=== PATIENT | female | born 1990 | race Caucasian/White ===

== ENCOUNTER 2024-05-13 09:07 | Outpatient (CLI) | payer BC, SELFPAY ==
--- NOTE | 2024-05-13 09:15 | CRLHL7_ITS ---
For Patients: As a result of the Cures Act, medical imaging exams and procedure reports are released immediately into your electronic medical record. You may view this report before your referring provider. If you have questions, please contact your health care provider. INDICATION: First trimester scan, establish dates. COMPARISON: None. TECHNIQUE: Real-time castro-scale imaging of the pelvis was performed. FINDINGS: Sonographic imaging demonstrates a single living intrauterine gestation. The embryo demonstrates a regular cardiac rate measuring 178 beats per minute. The embryo`s crown-rump length measurement of 2.1 cm corresponds to a gestational age of 8 weeks 5 days with a sonographic due date of 12/18/2024. There is a normal-appearing yolk sac. There are no gross abnormalities noted within the embryo at this early state of development. The gestational sac has a normal appearance. There is a 2.0 x 1.0 x 3.2 cm perigestational hemorrhage. The amount of fluid within the sac appears appropriate for gestational age. The cervix is closed. The myometrium appears normal. Normal right ovary. Corpus luteal cyst left ovary measures 2.6 x 1.7 x 2.2 cm. There are no suspicious fluid collections noted in the cul-de-sac. IMPRESSION: Single living intrauterine with sonographic gestational age is 8 weeks 5 days and sonographic due date of 12/18/2024. Subchorionic hemorrhage measures 2.0 x 1.0 x 3.2 cm. Dictated by Lenny Polanco MD @ 05/13/2024 10:20:40 AM (Electronically Signed)
== END 2024-05-13 09:08 | disposition home or self-care (01) ==
LOC: US 09:09
PROVIDERS: Visit Provider Registered Nurse
DX: Z34.91 Encounter for supervision of normal pregnancy, unspecified, first trimester (principal); O20.9 Hemorrhage in early pregnancy, unspecified; Z3A.08 8 weeks gestation of pregnancy
CPT/HCPCS: 76817; 82565; 82570; 84156; 84450; 84460; 84520; 86703; 86706; 86803; 86850; 86900; 86901; 87086; 87340; 87491; 87591; 87624; 88142

== ENCOUNTER 2024-05-13 10:10 | Outpatient (CLI) | payer BC, SELFPAY ==
[2024-05-13 14:08] LABS: Chlamydia DNA Amplified* NOT DETECTED (No Detected); GC DNA Amplified* NOT DETECTED (No Detected)
[2024-05-16 18:35] LABS: HPV Source Cervix; HPV, High Risk by TMA Not Detected
== END 2024-05-13 10:11 | disposition home or self-care (01) ==
PROVIDERS: Visit Provider Advanced Practice Midwife
DX: Z34.91 Encounter for supervision of normal pregnancy, unspecified, first trimester (principal); Z3A.08 8 weeks gestation of pregnancy; Z87.59 Personal history of other complications of pregnancy, childbirth and the puerperium; Z12.4 Encounter for screening for malignant neoplasm of cervix
CPT/HCPCS: 82565; 82570; 84156; 84450; 84460; 84520; 86592; 86703; 86704; 86706; 86762; 86787; 86803; 86850; 86900; 86901; 87086; 87340; 87491; 87591; 87624; 87625; 88141; 88142

== ENCOUNTER 2024-05-18 07:34 | Outpatient (CLI) | payer BC, SELFPAY | END 2024-05-18 07:35 | disposition home or self-care (01) | LOC: NFLDREF 05-19 15:43 | PROVIDERS: Visit Provider Advanced Practice Midwife | DX: Z87.59 Personal history of other complications of pregnancy, childbirth and the puerperium (principal) | CPT/HCPCS: 82570; 84156 ==

== ENCOUNTER 2024-08-05 13:26 | Outpatient (CLI) | payer BC, SELFPAY | END 2024-08-05 13:27 | disposition home or self-care (01) | LOC: US 13:27 | PROVIDERS: Visit Provider Obstetrics & Gynecology | DX: O99.212 Obesity complicating pregnancy, second trimester (principal); Z3A.20 20 weeks gestation of pregnancy | CPT/HCPCS: 76811 ==

== ENCOUNTER 2024-09-29 13:35 | Outpatient (CLI) | payer BC, SELFPAY | END 2024-09-29 13:36 | disposition home or self-care (01) | LOC: NFLDREF 10-02 03:12 | PROVIDERS: Visit Provider Obstetrics & Gynecology | DX: Z34.93 Encounter for supervision of normal pregnancy, unspecified, third trimester (principal); Z3A.28 28 weeks gestation of pregnancy | CPT/HCPCS: 86592 ==

== ENCOUNTER 2024-10-22 09:12 | Outpatient (CLI) | payer BC, SELFPAY ==
--- NOTE | 2024-10-22 09:15 | CRLHL7_ITS ---
For Patients: As a result of the Century Cures Act, medical imaging exams and procedure reports are released immediately into your electronic medical record. You may view this report before your referring provider. If you have questions, please contact your health care provider. INDICATION: Growth check, obesity TECHNIQUE: Ultrasound OB pelvis transabdominal. Real-time castro-scale and color Doppler imaging of the fetus was performed. COMPARISON: Ob ultrasound 08/05/2024 FINDINGS: Single living intrauterine gestation. heart rate: 142 beats per minute. Presentation: Breech. Placenta: Posterior. Amniotic fluid deepest pocket: 5.3 cm. The following biometric measurements were obtained: Biparietal diameter: 7.8 cm, 31 week 2 days, 20%. Head circumference: 29.4 cm, 32 weeks 3 days, 25%. Abdominal circumference: 28 cm, 32 week 0 day, 49%. Femur length: 5.7 cm, 29 week 5 day, <3%. This measured 3.3 cm on prior ultrasound in the 27% Ultrasound age: 31 week 3 day. CHRISSIE by US: 12/21/2024. EFW: 1740 Grams, 19.5 %. IMPRESSION.: Viable intrauterine measuring 31 week 3 day by ultrasound with CHRISSIE of 12/21/2024. weight of 1740 gram in the 19.5%, with asymmetric growth reduction of the femur measuring < 3%, previously in the 27% Dictated by Sweetie Morales MD @ 10/23/2024 10:01:47 AM (Electronically Signed)
== END 2024-10-22 09:13 | disposition home or self-care (01) ==
LOC: US 09:13
PROVIDERS: Visit Provider Obstetrics & Gynecology
DX: O99.213 Obesity complicating pregnancy, third trimester (principal); Z3A.31 31 weeks gestation of pregnancy
CPT/HCPCS: 76816

== ENCOUNTER 2024-11-20 11:09 | Outpatient (CLI) | payer BC, SELFPAY ==
[2024-11-21 12:26] LABS: Strep B DNA Probe Negative (Negative)
[2024-11-21 12:39] LABS: Strep B Susceptibility Needed? No
== END 2024-11-20 11:10 | disposition home or self-care (01) ==
LOC: NFLDREF 11:09
PROVIDERS: Visit Provider Obstetrics & Gynecology
DX: Z34.83 Encounter for supervision of other normal pregnancy, third trimester (principal)
CPT/HCPCS: 87081; 87653

== ENCOUNTER 2024-11-26 08:19 | Outpatient (CLI) | payer BC, SELFPAY ==
--- NOTE | 2024-11-26 08:15 | CRLHL7_ITS ---
For Patients: As a result of the Cures Act, medical imaging exams and procedure reports are released immediately into your electronic medical record. You may view this report before your referring provider. If you have questions, please contact your health care provider. OB ULTRASOUND BIOPHYSICAL PROFILE, 11/26/2024 CLINICAL HISTORY: Obesity. COMPARISON: 10/22/2024, 08/05/2024, 05/13/2024. TECHNIQUE: Real time castro scale imaging of the fetus was performed. FINDINGS: CHRISSIE by LMP/US: 12/17/2024. GA: 37 weeks 0 days. GESTATION: Single. CERVIX: Not visualized. AMNIOTIC FLUID: 5.3 cm SDP. BIOPHYSICAL PROFILE: Gross Body Movements: 2 Tone: 2 Respiratory Activity: 2 Amniotic Fluid SDP: 2 Total Score: 8/8 PLACENTA: Technique: TA. Placenta Position: Posterior. DOPPLERS: Heart Rate: 151 bpm. IMPRESSION: Normal biophysical profile score of 8/8. Lenny Polanco M.D. Diagnostic Radiologist [email or web address] Transcribed: 10:06 am DW/Dictated by: Lenny Polanco MD @ 11/26/2024 9:55:00 AM (Electronically Signed)
== END 2024-11-26 08:20 | disposition home or self-care (01) ==
LOC: US 08:19
PROVIDERS: Visit Provider Obstetrics & Gynecology
DX: O99.213 Obesity complicating pregnancy, third trimester (principal); Z3A.37 37 weeks gestation of pregnancy
CPT/HCPCS: 76819

== ENCOUNTER 2024-11-28 09:05 | Outpatient (CLI) | payer BC, SELFPAY ==
[2024-11-28] VITALS (28 sets, daily range): BP systolic 115–140; BP diastolic 58–84; PULSE 60–81; RESP 16; TEMP 36.5; O2SAT 97
--- NOTE | 2024-11-28 16:34 | PC.OBNST ---
NST Note NST Note Start: 11/28/24 09:09 Freq: ONCE Status: Discharge Protocol: Document 11/28/24 16:30 BAW (Rec: 11/28/24 16:34 BAW No Response) NST Note 5 Para (# of births) 2 EDC 12/17/24 Gestational Age In Weeks & Days 37 Weeks & 2 Days Patient Presented with Complaint(s) of Other Other Complaints pt. reported elevated BP's at home, visual changes and a headache. Reactive Yes Appropriate for Gestational Age Yes CASPER Heredia RNC Date 11/28/24 Reactive Yes Appropriate for Gestational Age Yes CASPER Mosley RN Date 11/28/24 OB NST charge Yes Complete NST Note via Write Note Yes The provider's electronic signature indicates the NST is reactive/appropriate for gestational age. *Note to provider: If an addendum is required, open the patient's chart and click on the note under the Nurse/Allied Health tab.
== END 2024-11-28 15:55 | disposition home or self-care (01) ==
LOC: OB OUT 09:06 → OB 09:09
PROVIDERS: Visit Provider Obstetrics & Gynecology
DX: O26.893 Other specified pregnancy related conditions, third trimester (principal); R03.0 Elevated blood-pressure reading, without diagnosis of hypertension; R51.9 Headache, unspecified; H53.9 Unspecified visual disturbance; Z3A.37 37 weeks gestation of pregnancy
CPT/HCPCS: 59025; G0463

== ENCOUNTER 2024-12-03 08:23 | Outpatient (CLI) | payer BC, SELFPAY ==
--- NOTE | 2024-12-03 08:15 | CRLHL7_ITS ---
For Patients: As a result of the Cures Act, medical imaging exams and procedure reports are released immediately into your electronic medical record. You may view this report before your referring provider. If you have questions, please contact your health care provider. OBSTETRICAL ULTRASOUND ??? BIOPHYSICAL PROFILE, 12/03/2024 INDICATION: Obesity. CLINICAL HISTORY: LMP: 03/12/2024 CHRISSIE by LMP: 12/17/2024 Gestational Age: 38 weeks 0 days PRIOR ULTRASOUND: 11/26/2024, 10/22/2024, 08/05/2024. TECHNIQUE: Real-time castro-scale transabdominal imaging of the fetus was performed. FINDINGS: Fetus: Single Cervix: Not visualized positioning: Vertex Amniotic Fluid: 5.1 cm SDP BIOPHYSICAL PROFILE: Gross body movements: 2 tone: 2 Respiratory activity: 2 Amniotic fluid SDP: 2 Total score: 8 Placenta technique: Transabdominal Placenta position: Posterior, right wall heart rate: 149 bpm IMPRESSION: Normal biophysical profile score of 8/8. LENNY MADDEN M.D. Diagnostic Radiologist [email or web address] Transcribed: 10:[address]/Dictated by: Lenny Madden MD @ 12/03/2024 9:24:00 AM (Electronically Signed)
== END 2024-12-03 08:24 | disposition home or self-care (01) ==
LOC: US 08:23
PROVIDERS: Visit Provider Obstetrics & Gynecology
DX: O99.213 Obesity complicating pregnancy, third trimester (principal); E66.812 Obesity, class 2; Z3A.38 38 weeks gestation of pregnancy
CPT/HCPCS: 76819

== ENCOUNTER 2024-12-03 10:06 | Inpatient (IN) | payer BC, SELFPAY ==
[2024-12-03] VITALS (20 sets, daily range): BP systolic 121–149; BP diastolic 68–87; PULSE 61–77; RESP 16; TEMP 36.6–36.8; O2SAT 98–99; BMI 40.1
[2024-12-03 10:40] LABS: Hematocrit 36.5 % (33.0-51.0); Hemoglobin* 12.1 gm/dL (12.0-16.0); Mean Corpuscular HGB Conc 33 gm/dL (32-36); Mean Corpuscular Hemoglobin 29 pg (26-34); Mean Corpuscular Volume 88 fL (80-100); Platelet Count* 225 K/uL (140-440); Red Blood Count 4.13 m/uL (4.00-5.20); Slide Review Reflex No; White Blood Count* 9.33 K/uL (4.50-11.00)
[2024-12-03 10:54] LABS: Alanine Aminotransferase* 19 U/L (4-35); Aspartate Amino Transferase* 26 U/L (12-35); Blood Urea Nitrogen* 6 mg/dL (5-24); Creatinine* 0.6 mg/dL (0.5-1.5); Estimated Glomerular Filt Rate 122 ml/min
[2024-12-03] MEDS: LACTATED RINGERS 1000 ML 1,000 ML 125 ML IV ×2 (11:57→19:04)
[2024-12-03] MEDS: OXYTOCIN 30 unit/500 ML in NS 30 UNIT/500 ML BAG IVPB (11:58)
[2024-12-03 12:46] LABS: Total Protein Urine 11 mg/dL
[2024-12-03 12:47] LABS: Creatinine Urine 32.3 mg/dL; Protein Creatinine Ratio Urine 0.34 (0-0.19)
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
--- NOTE | 2024-12-03 21:14 | W.PM.OBVAGDE ---
OB Procedure Vag Delivery Mother Details Mother Details: The patient is a 34 year-old, 5, Para 2, admitted on 12/03/24 at 38 0/7 Days gestation. Admitted for IOL due to diagnosis of preeclampsia w/o severe features. : 5 Para: 3 Weeks Gestation: 38 Admission Date: 12/03/24 Additional Details Amniotic Membrane Status: AROM Amniotic Membrane Rupture Date: 12/03/24 Amniotic Membrane Rupture Time: 16:01 Amniotic Membrane Fluid Description: Clear Analgesia/Anesthesia Type: None Waterbirth: No Pitcoin: Yes Intrapartal Events: Labor Induction Induction Method: per pitocin protocol and AROM Labor Onset: 17:00 Complete: 20:50 Pushin:50 Heart: heart tones during second stage were category 1. Delivery Details Delivery Date: 12/03/24 Delivery Time: 21:00 Route of delivery: Gender: Female Infant Viability: Alive; Heart Rate Present Position at Delivery: OA Delivery Details: Delivered via spontaneous vaginal delivery. was placed on maternal abdomen.? Cord was clamped and cut after a 30-60 second delay. Nose and mouth were bulb suctioned.? weight pending. 1 Minute Interval Total Score: 9 5 Minute Interval Total Score: 9 Additional Details Shoulder Dystocia: No Placenta Delivery Time: 21:07 Placental Delivery Description: Spontaneous Procedure Done: Global Blood Loss: 100 Laceration: Vaginal - 1st Degree (Not bleeding, not repaired) Episiotomy Description: None Blood Loss Measurement Type: QBL Bakri Used: No Sponge/Need Count Correct: Yes Cord Vessel Description: 3 Vessels Event Summary Status: Mother and infant were stable after delivery. Disposition: floor
[2024-12-03] MEDS: NIFEdipine ER 30 MG TAB PO (23:44)
[2024-12-04 04:06] VITALS: BP 113/75; PULSE 63; RESP 16; TEMP 36.8; O2SAT 98
[2024-12-04 06:48] LABS: Hemoglobin* 11.9 gm/dL (12.0-16.0)
--- NOTE | 2024-12-04 07:48 | PM.OBPNVD1 ---
OB - PN:Subj Subjective Date Seen: 12/04/24 Narrative: Lizabeth is a 34 y.o. G 5 P 3 who was admitted to L & D for induction of labor for pre-e without SF. ?She had a NVD that was uncomplicated. The patient feels well. ?The pain is well controlled with current medications. ?She has no new complaints. ?She is breast feeding and reports things are going well. the patient has done well.? Her Blood pressure was mild range after delivery and oral nifedipine was started. Vitals have been stable since.? She has remained afebrile.? Has a good appetite, is tolerating a general diet. ?She is voiding without difficulty.? She is passing gas and has had a bowel movement.? She is ambulating and denies any dizziness.? Has small amount of rubra lochia. Problems: Elevated BP with Pre-eclampsia w/out SF, oral nifedipine 30 mg started OB - PN: Obj Exam Physical Exam: Vital signs: Temp Pulse Resp BP Pulse Ox O2 Del Method 98.2 F 63 16 113/75 98 Room Air 12/04/24 04:06 12/04/24 04:06 12/04/24 04:06 12/04/24 04:06 12/04/24 04:06 12/04/24 04:06 Narrative: GENERAL APPEARANCE:? normal affect, alert, no distress MOOD:? appropriate CHEST:? clear to auscultation HEART:? regular rate and rhythm ABDOMEN:? soft, non-tender the uterine fundus is At Umbilicus, Midline and is appropriate for the stage of recovery. PERINEUM:? mild edema of the perineum. EXTREMITIES:? normal and no edema OB - PN: Obj Data Labs Labs: Laboratory Results - last 24 hr 12/03/24 12/03/24 12/04/24 10:30 12:20 06:40 WBC 9.33 RBC 4.13 Hgb 12.1 11.9 L Hct 36.5 MCV 88 MCH 29 MCHC 33 Plt Count 225 BUN 6 Creatinine 0.6 Estimated GFR 122 AST 26 ALT 19 Urine Creatinine 32.3 Protein/Creatinin Ratio 0.34 H Urine Total Protein 11 OB - PN: A/P Delivery Assessment and Plan (1) care and examination immediately after delivery: Status: Acute (2) Preeclampsia: Status: Acute (3) Lactating mother: Status: Acute Plan day: 1 Comments: Routine care , may see if needed? Hgb 11.9.? Pre-e w/out SF diagnosed by elevated BP greater than 4 hours apart? Labs WNL Oral Nifedipine 30 mg daily Continue to Monitor BP per protocol
[2024-12-04 08:07] VITALS: BP 116/75; PULSE 63; RESP 17; TEMP 36.4; O2SAT 98
[2024-12-04 11:55] VITALS: BP 129/86; PULSE 63; RESP 16; TEMP 36.4
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
[2024-12-04 16:01] VITALS: BP 112/73; PULSE 63; RESP 17; TEMP 36.5
[2024-12-04 18:36] LABS: Rapid Plasma Reagin (RPR) Reactive (Non Reactive)
[2024-12-04 20:04] VITALS: BP 130/86; PULSE 71; RESP 18; TEMP 36.7; O2SAT 98
[2024-12-04] MEDS: NIFEdipine ER 30 MG TAB PO (20:55)
[2024-12-05 00:15] VITALS: BP 114/66; PULSE 84; RESP 20; TEMP 37.1; O2SAT 97
[2024-12-05 04:32] VITALS: BP 120/71; PULSE 69; RESP 16; TEMP 36.4; O2SAT 99
[2024-12-05] MEDS: DOCUSATE SODIUM 100 MG CAPSULE PO (08:20)
[2024-12-05] MEDS: MEASLES,MUMPS,RUBELLA VACC/PF 1 DOSE INJ 1 EACH SUBCUT (08:20)
[2024-12-05 08:31] VITALS: BP 146/85; PULSE 66; RESP 16; TEMP 36.8; O2SAT 100
[2024-12-05 09:18] LABS: Hematocrit 37.9 % (33.0-51.0); Hemoglobin* 12.3 gm/dL (12.0-16.0); Mean Corpuscular HGB Conc 33 gm/dL (32-36); Mean Corpuscular Hemoglobin 29 pg (26-34); Mean Corpuscular Volume 91 fL (80-100); Platelet Count* 227 K/uL (140-440); Red Blood Count 4.18 m/uL (4.00-5.20); White Blood Count* 11.48 K/uL (4.50-11.00)
[2024-12-05 09:27] LABS: Slide Review Reflex No
[2024-12-05 09:33] LABS: Alanine Aminotransferase* 22 U/L (4-35); Aspartate Amino Transferase* 30 U/L (12-35); Blood Urea Nitrogen* 9 mg/dL (5-24); Creatinine* 0.6 mg/dL (0.5-1.5); Est. Creatinine Clearance* 111.35; Estimated Glomerular Filt Rate 122 ml/min
--- NOTE | 2024-12-05 09:58 | P.DS_ITS ---
DS: Providers Provider Time Seen by Provider: 09:59 Date Seen: 12/05/24 Date of admission: 12/03/24 10:06 Primary care physician: Not a Local Provider Admitting Clinician: Zaida Rowell MD Consults: 12/03/24 14:10 Consult to Supervisor Tumblers [CONS] Routine Comment: reflex order from social history questionnaire Reason for Consult:: Social Service Consult Attending Physician on discharge: Francoise Acosta MD Exam Narrative: Exam Narrative: General: Alert and oriented, no acute distress Psych: Appropriate mood and affect Heart: Regular rate and rhythm, no rubs murmurs or gallops Lungs: Clear to posterior auscultation throughout. No wheezes, rales or crackles. Abdomen: Soft, nondistended. Nontender to palpation. Fundus at umbilicus. Extremities: Trace lower extremity edema. Calves are without pain/swelling/erythema. UOP: Adequate at 550cc/8 hours Const: Vital Signs, click to edit/add: Vital Signs - 24 hr 12/04/24 11:55 12/04/24 16:01 12/04/24 20:04 Temperature 97.6 F 97.7 F 98.0 F Pulse Rate [Blood Pressure Cuff] 63 63 71 Respiratory Rate 16 17 18 Blood Pressure [Le ft Arm] 129/86 112/73 130/86 Pulse Oximetry 98 Oxygen Delivery Me thod Room Air Room Air Room Air 12/05/24 00:15 12/05/24 04:32 12/05/24 08:31 Temperature 98.8 F 97.5 F L 98.2 F Pulse Rate [Blood Pressure Cuff] 84 69 66 Respiratory Rate 20 16 16 Blood Pressure [Le ft Arm] 114/66 120/71 146/85 H Pulse Oximetry 97 99 100 Oxygen Delivery Me thod Room Air Room Air Room Air OB - DS: Summary Hospital Course Hospital Course: The patient is a 34 year old G 5 P 3 at 38 weeks gestation that was admitted to the Center on 12/03/24 for induction of labor in the setting of preeclampsia without severe features. She had an uncomplicated vaginal delivery. She delivered a viable female infant. She is breast feeding. the patient has done well. Lizabeth was started on nifedipine extended release 30 mg daily for blood pressure control. She is feeling well today with no headaches, vision changes or right upper quadrant pain. Initial blood pressure this morning was elevated, where repeat HELLP labs were obtained and found to be within normal limits. Serial blood pressures to followed, which were within normal limits thus her antihypertensive regimen was not revised. Plan to discharge on nifedipine extended release 30 mg daily. Recommend twice daily blood pressure checks and log. She will be due to follow-up in clinic early next week for a MD blood pressure check. She is meeting all appropriate milestones. Pain is well controlled, tolerating a diet without nausea or vomiting. Voiding spontaneously, passing flatus. Lochia is described as light. Denies chest pain, dyspnea, fever/chills, dizziness or lightheadedness. Infant Gender: Female Time Spent with Patient Time attestation: Total time spent providing and/or coordinating discharge services: Time spent: Less than 30 minutes Discharge Plan Discharge Disposition: Home, Self-Care Date of Admission: 12/03/24 10:06 Primary Care Provider: Provider,Not a Local Condition: Stable Anticipated Discharge Date/Time: 12/05/24 13:00 Discharge Medications: New nifedipine 30 mg Tablet Extended Release 30 mg PO HS Qty: 30 1RF Continued DHA 200 mg capsule 200 mg PO DAILY aspirin [Adult Low Dose Aspirin] 81 mg tablet,delayed release (DR/EC) 81 mg PO QDAY Discharge Orders: Discharge Order (Routine); Ordered 12/05/24 Ordered By: Iris Acosta Additional Instructions: Discharge instructions were reviewed with the patient including signs and symptoms of infection and home going medications Nothing vaginally for 6 weeks: no tampons or intercourse Do not drive while taking narcotic pain medication(s) Off Work or School for 8 weeks Symptoms to report to doctor: * Bleeding that saturates more than one pad per hour * Passing clots larger than the size of a golf ball * Pain not relieved by prescribed medication * Fever above 100.4 degrees Fahrenheit * A foul vaginal odor * Difficulty in emotions, mood, and functions * Thoughts of hurting yourself and/or * Painful, reddened area in your breast * Any drainage, redness, or tenderness in your IV/epidural site * Severe headache that doesn't improve after taking medications * Changes in vision, including temporary loss of vision, blurred vision, and/or light sensitivity * Upper abdominal pain (usually under ribs on the right side) * Decrease in urination or painful, frequent urinating * Chest pain * Shortness of breath * Tenderness or pain with redness and/swelling in the calf(s) of your leg [facility] for a BP check 12/07-12/09. Call with BP greater than or equal to 160/110 Optional 2-week visit: discuss infant feeding concerns, review control options and screen for anxiety/depression. 6-week visit for an annual exam. consultation services are available to all mothers and babies for the first year after delivery.? To make an appointment, please call [phone]. Follow Up Appointments: Provider,Not a Local [Primary Care Provider] - Forms: [employer] Info Instructions
[2024-12-05 10:06] VITALS: BP 136/83; PULSE 66
[2024-12-05 11:00] VITALS: BP 122/80
[2024-12-05] MEDS: IBUPROFEN 600 MG TABLET PO (11:32)
[2024-12-05 21:22] LABS: Treponema pallidum AbTP-PA Non Reactive (Non Reactive)
== END 2024-12-05 12:24 | disposition home or self-care (01) | DRG 560 ==
PROVIDERS: Obstetrics & Gynecology; Admitting Provider Obstetrics & Gynecology; Visit Provider Obstetrics & Gynecology
DX: O14.04 Mild to moderate pre-eclampsia, complicating childbirth (principal); Z3A.38 38 weeks gestation of pregnancy; Z37.0 Single live birth; O99.214 Obesity complicating childbirth; E66.812 Obesity, class 2; Z87.59 Personal history of other complications of pregnancy, childbirth and the puerperium; Z78.9 Other specified health status; O70.0 First degree perineal laceration during delivery
CPT/HCPCS: 36415; 82565; 82570; 84156; 84450; 84460; 84520; 85018; 85027; 86592; 86593; 86780; 88307; A9270; J7120

== ENCOUNTER 2024-12-24 09:01 | Outpatient (CLI) | payer BC, SELFPAY ==
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
== END 2024-12-24 09:02 | disposition home or self-care (01) ==
LOC: OB LAC 09:02
PROVIDERS: Visit Provider Obstetrics & Gynecology
DX: Z39.1 Encounter for care and examination of lactating mother (principal)
CPT/HCPCS: G0463

== ENCOUNTER 2025-01-18 12:13 | Outpatient (CLI) | payer BC, SELFPAY | END 2025-01-18 12:14 | disposition home or self-care (01) | LOC: NFLDREF 12:18 | PROVIDERS: PCP Registered Nurse; Visit Provider Registered Nurse | DX: O14.95 Unspecified pre-eclampsia, complicating the puerperium (principal); R82.90 Unspecified abnormal findings in urine | CPT/HCPCS: 80048; 87086 ==

== ENCOUNTER 2025-02-24 08:07 | Outpatient (CLI) | payer BC, SELFPAY ==
--- NOTE | 2025-02-24 08:15 | CRLHL7_ITS ---
For Patients: As a result of the Century Cures Act, medical imaging exams and procedure reports are released immediately into your electronic medical record. You may view this report before your referring provider. If you have questions, please contact your health care provider. EXAM: MRI OF THE RIGHT KNEE, WITHOUT CONTRAST CLINICAL INDICATION: Knee pain. PRIOR SURGERY: None reported. COMPARISON PLAIN FILMS: None available at time of interpretation. COMPARISON CROSS-SECTIONAL IMAGING STUDIES: None available at time of interpretation. TECHNICAL: Axial, sagittal and coronal T1, PD, PD FS and T2 FS images. FINDINGS: OSSEOUS STRUCTURES: No fracture, marrow edema or marrow replacement process. JOINT SPACE AND CAPSULE: Effusion: No significant joint effusion or synovitis. Joint Bodies: None seen. CRUCIATE LIGAMENTS: Anterior Cruciate Ligament: Full-thickness chronic tear with indistinct scarred down remnant over the tibial spines. Posterior Cruciate Ligament: Mildly redundant from slight anterior translocation of the tibia. EXTENSOR MECHANISM: Distal Quadriceps Tendon: Normal. Patellar Tendon: Normal. Medial Patellar Retinaculum and Medial Patellofemoral Ligament: Normal. Lateral Patellar Retinaculum: Normal. Normal patellar alignment. No patella albin. Normal trochlear depth. Normal lateral trochlear inclination. MEDIAL COLLATERAL LIGAMENT AND POSTEROMEDIAL CORNER COMPLEX: Medial Collateral Ligament: Normal. Medial Head of the Gastrocnemius and Semimembranosus Tendons: Normal. LATERAL COLLATERAL LIGAMENT COMPLEX AND POSTEROLATERAL CORNER COMPLEX: Fibular Collateral Ligament: Normal. Distal Biceps Femoris Tendon Complex: Normal. Iliotibial Band: Normal. Popliteus Tendon: Normal. Posterolateral Corner Capsule: Normal. MEDIAL COMPARTMENT: Medial Meniscus: Normal size and morphology without tear. Articular Cartilage: Articular surfaces appear smooth without focal articular cartilage defect or subchondral marrow changes. LATERAL COMPARTMENT: Lateral Meniscus: Somewhat complex longitudinal tear at the periphery of the posterior horn sparing the root. Tear extends into the peripheral midbody. Articular Cartilage: Articular surfaces appear smooth without focal articular cartilage defect or subchondral marrow changes. PATELLOFEMORAL COMPARTMENT: Articular Cartilage: Articular surfaces appear smooth without focal articular cartilage defect or subchondral marrow changes. PERIARTICULAR SOFT TISSUES: Popliteal Cyst: No significant popliteal cyst. Periarticular Cysts or Ganglia: None. Bursae: No prepatellar, superficial infrapatellar, deep infrapatellar, pes anserinus or semimembranosus/MCL bursitis. Musculature: No muscle atrophy or muscle edema. Subcutaneous and Soft Tissues: No subcutaneous or soft tissue mass, edema or fluid collection. Neurovascular Structures: Normal. IMPRESSION: 1. Likely chronic full-thickness ACL tear. 2. Peripheral longitudinal tear body and posterior horn lateral meniscus. Dictated by Herman Evans MD @ 02/25/2025 9:37:13 AM (Electronically Signed)
== END 2025-02-24 08:08 | disposition home or self-care (01) ==
LOC: MRI 08:08
PROVIDERS: PCP Family Medicine; Visit Provider Family Medicine
DX: M25.561 Pain in right knee (principal); S83.261A Peripheral tear of lateral meniscus, current injury, right knee, initial encounter
CPT/HCPCS: 73721

== ENCOUNTER 2025-06-21 08:19 | Day surgery (SDC) | payer BC, SELFPAY ==
[2025-06-21] VITALS (15 sets, daily range): BP systolic 106–132; BP diastolic 62–99; PULSE 66–80; RESP 16–20; TEMP 36.3–37.2; O2SAT 97–100; BMI 32.4
[2025-06-21 08:59] LABS: Ur HCG Qualitative* Negative (Negative)
--- NOTE | 2025-06-21 09:03 | W.PM.H&PU ---
History & Physical Update History & Physical Update H&P Reviewed and patient assessed: No changes noted
[2025-06-21] MEDS: SODIUM CHLORIDE 0.9 % (FLUSH) 10 ML SYRINGE IVF (09:05)
[2025-06-21] MEDS: LACTATED RINGERS 1000 ML 1,000 ML 100 ML IV ×2 (09:05→13:01)
--- NOTE | 2025-06-21 09:59 | REH.PT ---
Pt seen in SDS. ACL repair. Pt was fitted for crutches and issued for home use. Instructed pt in gt level surfaces with 2 crutches, basic transfers and verbally instructed in stairs sequence and car transfers. Goals of PT were met. RADHIKA.
[2025-06-21] MEDS: MIDAZOLAM HCL 1 MG/ML inj IVP (10:21)
--- NOTE | 2025-06-21 10:31 | SUR.PREOP ---
TIME?OUT:?1020,right ACL PT/RN/MDA?VERIFICATION?OF?SURGICAL?SITE,?PROCEDURE,?AND?CONSENT OBTAINED?PRIOR?TO?INVASIVE?PROCEDURE.
--- NOTE | 2025-06-21 12:58 | P.NB_ITS ---
Nerve Block Nerve Block Time Seen by Provider: 10:20 Date Seen: 06/21/25 Type of block requested by surgeon for post-operative analgesia: adductor canal Side: right Time out performed: Yes Verification of patient name: Yes Verification of date of : Yes Site marking: site marked Name of person performing procedure: Rik Continuous monitoring Was continuous monitoring of O2 sat, B/P, monitor car operator, recorded every 15 minutes?: Yes Procedure Checklist: sterile prep, needles and gloves Ultrasound guided. Images saved: Yes Medications given in 5ml increments after negative aspiration: Marcaine %: 0.25 mL: 8 Needle gauge: 20 and Exparel mL: 7 Patient tolerated procedure well: Yes Block Charges Block Charge (with Pro Fee): Femoral Nerve Use of Ultrasound Machine for Block: Yes- US Guidance/pain block
--- NOTE | 2025-06-21 12:58 | P.NB_ITS ---
Nerve Block Nerve Block Time Seen by Provider: 10:20 Date Seen: 06/21/25 Type of block requested by surgeon for post-operative analgesia: popliteal Side: right Time out performed: Yes Verification of patient name: Yes Verification of date of : Yes Site marking: site marked Name of person performing procedure: Rik Continuous monitoring Was continuous monitoring of O2 sat, B/P, cardiac rehabilitation program director, recorded every 15 minutes?: Yes Procedure Checklist: sterile prep, needles and gloves Ultrasound guided. Images saved: Yes Medications given in 5ml increments after negative aspiration: Marcaine %: 0.25 mL: 17 Needle gauge: 20 and Exparel mL: 3 Patient tolerated procedure well: Yes Additional comments: Needle noted adjacent to nerve Block Charges Block Charge (with Pro Fee): Sciatic Nerve Use of Ultrasound Machine for Block: Yes- US Guidance/pain block
--- NOTE | 2025-06-21 12:59 | P.ANES_ITS ---
Anesthesia Charges Start Date/Time Anesthesia Start Date: 06/21/25 Anesthesia Start Time: 11:25 Stop Date/Time Anesthesia Stop Date: 06/21/25 Anesthesia Stop Time: 14:10 Coding CPT Codes CPT Codes: ANESTH KNEE JOINT SURGERY - 89399 ([id number]) P2 - PATIENT W/MILD SYST DISEASE, QK - CURATORIAL ASSISTANT 2-4 CNCRNT ANES PROC, QX - PERL SOFTWARE ENGINEER SVC W/ MD MED DIRECTION
--- NOTE | 2025-06-21 12:59 | W.ANESCHARGE ---
Anesthesia Charges Start Date/Time Anesthesia Start Date: 06/21/25 Anesthesia Start Time: 11:25 Stop Date/Time Anesthesia Stop Date: 06/21/25 Anesthesia Stop Time: 14:10 Coding CPT Codes CPT Codes: ANESTH KNEE JOINT SURGERY - 50562 ([id number]) P2 - PATIENT W/MILD SYST DISEASE, QK - SHERIFF DEPUTY 2-4 CNCRNT ANES PROC, QX - TIE BINDER SVC W/ MD MED DIRECTION
--- NOTE | 2025-06-21 13:44 | P.ORPRC_ITS ---
Procedure Note Date of procedure: 06/21/25 Procedure: PREOPERATIVE DIAGNOSIS: 1. Right knee ACL tear, acute 2. Right knee lateral meniscus tear, posterior horn, longitudinal, acute POSTOPERATIVE DIAGNOSIS: 1. Right knee ACL tear, acute 2. Right knee lateral meniscus tear, posterior horn, longitudinal, acute PROCEDURE: 1. Right knee ACL arthroscopic reconstruction with independent tunnel drilling (quad tendon autograft with internal brace) 2. Bone graft/bone marrow concentrate harvest from proximal tibia via separate incision (60ml aspirated) 3. Intraoperative fluoroscopy operated and interpreted by Eh Mensah M.D. for intraoperative evaluation of femoral button positioning. Fluoroscopy time was 1 second. SURGEON: Eh Mensah M.D. LORRY WEIGHER: Pradeep Silverman PA-C; Triston GAY. Of note, assistants were critical for this case to aid in patient positioning, knee manipulation, instrument exchange, graft preparation, camera assistance, bone graft harvest, and closure. ANESTHESIA: Spinal plus regional nerve block EBL: 25 mL TOURNIQUET: 90 minutes at 250 torr IMPLANTS: Femoral fixation: Arthrex tight rope femoral button Tibial fixation: Arthrex tibial ABS button and Arthrex 4.75 mm Peek SwiveLock suture anchor (x1) Allosync Pure demineralized bone matrix Meniscal repair: Arthrex 2-0 FiberWire (x4 suture) no other implants COMPLICATIONS: None evident INDICATIONS: The patient is a pleasant 35-year-old female. They experienced a right knee ACL disruption injury in recent time. MRI at that time confirmed ACL tear along with a lateral meniscus posterior horn tear. The patient desires to remain physically active with cutting/pivoting type activities/sports. Accordingly, surgery is indicated. FINDINGS: Exam under anesthesia revealed positive Kristal's showing grade 2B. Positive pivot shift with a thud clunk. Stable to varus and valgus stress. Symmetric dial test at 30 and 90?. The diagnostic arthroscopy showed relatively healthy articular cartilage throughout all 3 compartments with the exception of some fissuring on the lateral femoral condyle. Medial meniscus was intact, including the posterior root. Lateral meniscus torn in the posterior horn approaching the posterior root. The root was intact. The longitudinal tear extended around just past the popliteus approaching the midbody. ACL was torn with positive empty wall sign. PCL was intact and robust. DESCRIPTION OF PROCEDURE: After a thorough discussion of risks, benefits, and alternatives, the patient was brought to the operating room and placed upon the operating table. Induction of anesthesia was undertaken as previously noted. 2 g IV Ancef was administered within 1 hr of incision preoperatively. Appropriate time-out was performed identifying proper patient, site, and procedure. The right lower extremity was prepped and draped in the appropriate sterile fashion using ChloraPrep. Prior to tourniquet inflation, a small incision was made just lateral to tibial tubercle with a 15 blade scalpel. The Arthrex Stan bone marrow aspiration trocar was then inserted and directed posterior and slightly proximal. 60 mL bone marrow aspiration was completed in a heparinized syringe. The volume was drawn to total 60ml of fluid for centrifugation. This was then spun in a centrifuge and bone marrow concentrate later utilized. This concentrate was mixed with Allosync Pure DBM and the autograft bone captured in the graft net de vice from tunnel drilling. This mixture was eventually placed into the sockets that were created for the ACL graft, as described below. After the bone marrow aspiration, the limb was exsanguinated and tourniquet inflated. A transverse incision was made approximately 1 cm proximal to the superior pole of the patella. We excised the subcutaneous fat sharply. The quad tendon was then visualized from the patellar attachment all the way more proximal towards its muscular transition and mobilized from the SQ fat with a wet raytech and jocker elevator. A 9mm double blade was utilized to sharply incise the quad tendon from the superior pole of patella as it was directed more proximally. This was done under direct visualization. We released it sharply from the patella and placed it through the quad pro tendon harvester. (A full- thickness quad tendon graft was harvested.)] The harvester was turned in controlled quarter turns with proximal directed force. We passed this up approximately 68-70 mm of tendon. The tendon was then retrieved out the side hole of the harvester and the quad pro cutting mechanism engaged with a robust quad tendon harvested. The quad was reapproximated with # 2-0 Stratafix in a running fashion. Meanwhile, the graft was then prepared on the back table. Anterolateral and anteromedial portals were established with an 11 blade, and a diagnostic arthroscopy was performed. This identified the findings as noted above. Following the diagnostic arthroscopy the lateral meniscus posterior horn tear was further identified, freshened with a combination of arthroscopic shaver and arthroscopic rasp, and prepared for repair. Meanwhile, the remaining ACL graft fibers were debrided with the shaver. For the posterior horn lateral meniscus repair, meniscus scorpion was utilized to pass ?hay bale? type throws around this longitudinal tear particularly around the popliteal hiatus. 4 different sutures were passed with excellent reapproximation of the meniscus. It was reprobed and found to be stable. Again the posterior root was probed and found to be stable. Our attention was turned to ACL tunnel creation/preparation. Thus, a FlipCutter was utilized with separate, independent tunnel drilling using a 10.5 mm and 10.5 mm tunnel for the femur and tibia, respectively. After preparing the graft and drilling the tunnels, the button was passed out the lateral femoral cortex and confirmed to be flipped and apposed against the cortex with C-arm fluoroscopic imaging. After the button was passed, we utilized the autograft/allograft mixture which included autograft bone captured from the ACL tunnel drilling with the Arthrex Graft Net, the bone marrow autograft obtained from the proximal tibial plateau from the original incision over the proximal anterolateral tibia with the trocar, and the Allosync Pure demineralized bone matrix. This mixture of autograft and allograft was passed into the ACL tunnels with a beveled cannula under direct visualization. The ACL graft was then passed without difficulty first into the femoral socket and finally dunked into the tibial socket. After cycling the knee 35+ times with tension on the tibial sutures, we secured the tibial side internal brace sutures with the knee in full extension utilizing the peek SwiveLock suture anchor after drilling this, tapping and placing the anchor. Thereafter, the tibial ABS button was applied and secured with the knee in approximately 5? of flexion and a posterior drawer applied. The knee again was cycled and complete tension finalized on the femoral side again with the knee at 5? of flexion and a posterior drawer applied. A Kristal test was performed again, and found to be stable. The graft and the meniscus repair was reprobed and again found to be taut and stable. The shaver was also utilized to ensure all remaining bony debris was evacuated from the medial and lateral compartments as well as suprapatellar pouch. At this stage, closure was completed with 2-0 Stratafix and 4-0 Stratafix to close the subcutaneous and subcuticular layers, respectively. Dressings were applied, tourniquet deflated, the patient awoken from anesthesia and transferred to the PACU in stable condition. PLAN: 1. Toe-touch weightbear operative extremity. Crutch/walker ambulation assistance as needed until quad control present at which time may advance to nasreen ghtbear as tolerated if brace locked in full extension when more alert. 2. Ice and oral analgesics (e.g. acetaminophen and/or ibuprofen, and oxycodone) for pain as needed. 3. Knee range of motion and quad sets/straight leg raise regularly, guided by physical therapy. 4. Follow up with PA visit in 1-2 weeks for a wound check.
--- NOTE | 2025-06-21 14:15 | P.ANES_ITS ---
Anesthesia Charges Start Date/Time Anesthesia Start Date: 06/21/25 Anesthesia Start Time: 11:25 Stop Date/Time Anesthesia Stop Date: 06/21/25 Anesthesia Stop Time: 14:10 Coding CPT Codes CPT Codes: ANESTH KNEE JOINT SURGERY - 62390 ([id number]) P2 - PATIENT W/MILD SYST DISEASE, QK - [place]ERA TECHNICIAN 2-4 CNCRNT ANES PROC, QX - INVESTIGATOR CASH SHORTAGE SVC W/ MD MED DIRECTION
--- NOTE | 2025-06-21 14:15 | W.ANESCHARGE ---
Anesthesia Charges Start Date/Time Anesthesia Start Date: 06/21/25 Anesthesia Start Time: 11:25 Stop Date/Time Anesthesia Stop Date: 06/21/25 Anesthesia Stop Time: 14:10 Coding CPT Codes CPT Codes: ANESTH KNEE JOINT SURGERY - 45491 ([id number]) P2 - PATIENT W/MILD SYST DISEASE, QK - TRANSFERRER 2-4 CNCRNT ANES PROC, QX - VIDEO NEWS EDITOR SVC W/ MD MED DIRECTION
== END 2025-06-21 16:29 | disposition home or self-care (01) ==
PROVIDERS: Anesthesiology; PCP Family Medicine; Visit Provider Orthopaedic Surgery Sports Medicine
PROC: (CPT 29888; principal; 2025-06-21 10:00)
DX: S83.511A Sprain of anterior cruciate ligament of right knee, initial encounter (principal); S83.281A Other tear of lateral meniscus, current injury, right knee, initial encounter; G89.18 Other acute postprocedural pain
CPT/HCPCS: 29888; 20902; 01400; 64445; 64447; 73560; 76000; 76942; 81025; C1713; J0330; J0665; J0666; J0690; J1644; J2250; J2704; J3010; J3490; J7120; L1833